=== PATIENT | female | born 1995 | race Two or more races ===

== ENCOUNTER 2021-02-19 16:25 | Outpatient (CLI) | payer OTHER | END 2021-02-19 17:07 | disposition home or self-care (01) | LOC: PRENATAL 16:25 | PROVIDERS: ATTEND Obstetrics & Gynecology Maternal & Fetal Medicine | DX: O35.0XX1 Maternal care for (suspected) central nervous system malformation in fetus, fetus 1 (principal); O35.3XX1 Maternal care for (suspected) damage to fetus from viral disease in mother, fetus 1; O98.513 Other viral diseases complicating pregnancy, third trimester; O36.8131 Decreased fetal movements, third trimester, fetus 1; Z36.89 Encounter for other specified antenatal screening; Z3A.34 34 weeks gestation of pregnancy ==

== ENCOUNTER 2021-03-03 14:30 | Inpatient (IN) | payer OTHER ==
[~2021-03-03] VITALS: Ht 160 cm; Wt 75.3 kg
[2021-03-26] MEDS ORDERED: PRENATABS RX T1 EACH PO (19:11)
[2021-03-29] MEDS ORDERED: NAPR500T14 PO (08:53)
== END 2021-03-29 14:46 | disposition home or self-care (01) | DRG 807 ==
LOC: LDR 03-26 17:56 → OB/GYN 03-27 17:42
PROVIDERS: ADMIT Obstetrics & Gynecology; ATTEND Obstetrics & Gynecology
PROC: 10E0XZZ Delivery of Products of Conception, External Approach (ICD-10-PCS; principal; 2021-03-27)
PROC: 0KQM0ZZ Repair Perineum Muscle, Open Approach (ICD-10-PCS; 2021-03-27)
PROC: 0UQMXZZ Repair Vulva, External Approach (ICD-10-PCS; 2021-03-27)
PROC: 3E0P7VZ Introduction of Hormone into Female Reproductive, Via Natural or Artificial Opening (ICD-10-PCS; 2021-03-27)
PROC: 10907ZC Drainage of Amniotic Fluid, Therapeutic from Products of Conception, Via Natural or Artificial Opening (ICD-10-PCS; 2021-03-27)
PROC: 4A1HXFZ Monitoring of Products of Conception, Cardiac Rhythm, External Approach (ICD-10-PCS; 2021-03-27)
DX: O70.1 Second degree perineal laceration during delivery (principal); Z37.0 Single live birth; O71.82 Other specified trauma to perineum and vulva; Z3A.39 39 weeks gestation of pregnancy